=== PATIENT | male | born 1980 | race African-American/Black ===

== ENCOUNTER 2017-08-19 10:33 | Emergency (ER) | payer SELFPAY ==
[~2017-08-19] VITALS: Ht 177.8 cm; Wt 91.0 kg
[2017-08-19 10:43] VITALS: BP 151/69; PULSE 82; RESP 16; TEMP 98.1; O2SAT 98
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
[2017-08-19] MEDS ORDERED: NORC5TAB PO (11:32)
[2017-08-19] MEDS ORDERED: NAPR500 PO (11:32)
== END 2017-08-19 12:02 | disposition home or self-care (01) ==
LOC: PHEFT 10:33
DX: S92.334A Nondisplaced fracture of third metatarsal bone, right foot, initial encounter for closed fracture (principal); S92.344A Nondisplaced fracture of fourth metatarsal bone, right foot, initial encounter for closed fracture; V86.56XA Driver of dirt bike or motor/cross bike injured in nontraffic accident, initial encounter
CPT/HCPCS: 73630; 99283; L3260

== ENCOUNTER 2017-10-04 21:55 | Emergency (ER) | payer OTHER ==
[~2017-10-04] VITALS: Ht 180.3 cm; Wt 89.8 kg
[~2017-10-04 21:55] MED LIST: NAPR500 PO; NORC5TAB PO
[2017-10-04 22:05] VITALS: BP 129/69; PULSE 92; RESP 18; TEMP 98.4; O2SAT 97
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
--- NOTE | 2017-10-04 22:44 | PD ---
HPI . Left forearm injury Chief Complaint: Injury Time Seen by Provider: 22:20 Travel History International Travel<30 days: No Contact w/Intl Traveler<30days: No Traveled to known affect area: No History of Present Illness HPI This patient presents with a chief complaint of injury to his left forearm. It occurred a couple of hours ago. He states that he was at work when another employee accidentally fell over a cup rack and fell and struck in the left forearm. She complaining with pain in the extensor compartment of the forearm. Pain is exacerbated by flexing and extending the wrist. He states that the pain is "not very bad" but is rated a 7/10. He has not done anything for it prior to presentation. [facility] Past Medical History Medical History: Denies Significant Hx Hx Anticoagulant Therapy: No Diabetes: No Tetanus Vaccination: > 5 Years Influenza Vaccination: Yes Past Surgical History Surgical History: No Previous Surgery Social History Alcohol Use: Yes Tobacco Use: Yes Substance Use: No Allergies-Medications (Allergen,Severity, Reaction): Coded Allergies: Penicillins (Verified Allergy, Severe, 10/04/17) Reported Meds & Prescriptions Reported Meds & Active Scripts Active Review of Systems Musculoskeletal: Positive: Myalgias, No: Limited ROM Physical Exam Narrative GENERAL: Awake and alert and in no acute distress. SKIN: Warm and dry. HEAD: Normocephalic/atraumatic. EYES: Pupils are equal. Extraocular movements are intact. NECK: Normal range of motion. RESPIRATORY: Nonlabored respirations. MUSCULOSKELETAL: Left forearm has no evidence of injury. There is no bruising, abrasions, swelling, deformity. He reports diffuse tenderness of the extensor compartment of the forearm. Distally neurovascularly intact. NEUROLOGICAL: Nonfocal. PSYCHIATRIC: Appropriate mood and affect. Data Data Last Documented VS Vital Signs Date Time Temp Pulse Resp B/P (MAP) Pulse Ox O2 Delivery O2 Flow Rate FiO2 10/04/17 22:05 98.4 92 18 129/69 (89) 97 Orders Orders Forearm (2vws) (10/04/17 22:20) [facility] Medical Decision Making Medical Screen Exam Complete: Yes Emergency Medical Condition: Yes Differential Diagnosis Differential diagnosis of extremity trauma includes but is not limited to fracture, sprain or strain, dislocation, contusion Narrative Course This patient presents with an injury to his left forearm. His exam is normal. I have a very low index of suspicion for significant injury. X-ray to my interpretation is negative for fracture or dislocation. He'll be discharged home with instructions in [facility] therapy. Diagnosis Primary Impression: Contusion of left forearm Qualified Codes: S50.12XA - Contusion of left forearm, initial encounter Patient Instructions: Contusion in Adults (DC), General Instructions, [facility] Therapy (ED) Additional Instructions: You may take an [id number] medication for pain such as Tylenol, ibuprofen or Aleve. Disposition: 01 DISCHARGE HOME Condition: Stable Kelly Garland MD Oct 04, 2017 22:44
== END 2017-10-04 22:50 | disposition home or self-care (01) ==
LOC: PHEFT 21:55
DX: S50.12XA Contusion of left forearm, initial encounter (principal); W18.30XA Fall on same level, unspecified, initial encounter
CPT/HCPCS: 73090; 99283